=== PATIENT | female | born 1955 | race Caucasian/White ===

== ENCOUNTER 2017-08-13 13:51 | Emergency (ER) | payer OTHER ==
[~2017-08-13 13:51] MED LIST: ATOR40TA71 PO; FISH1CAP63 PO; METO-408 PO; MULT-1192 PO
[2017-08-13] MEDS ORDERED: FENTANYL CITRATE PF 50 MCG/1 ML 2ML VIAL ONE (14:09)
[2017-08-13] MEDS ORDERED: ONDANSETRON HCL 4 MG/2 ML VIAL ONE (14:09)
[2017-08-13] MEDS ORDERED: PROPOFOL 10 MG/ML 20ML VIAL IV ONE (15:10)
[2017-08-13] MEDS ORDERED: HYDROCODONE/ACETAMINOPHEN 10/325 MG TAB ONE (15:49)
== END 2017-08-13 16:26 | disposition home or self-care (01) ==
LOC: EDH 13:51
DX: S52.592A Other fractures of lower end of left radius, initial encounter for closed fracture (principal); S52.692A Other fracture of lower end of left ulna, initial encounter for closed fracture; Z87.891 Personal history of nicotine dependence; Z90.710 Acquired absence of both cervix and uterus; W01.0XXA Fall on same level from slipping, tripping and stumbling without subsequent striking against object, initial encounter; Y93.89 Activity, other specified; Y92.098 Other place in other non-institutional residence as the place of occurrence of the external cause; Y99.8 Other external cause status
CPT/HCPCS: 25605; 73080; 73100; 73110; 96374; 96375; 99152; 99153; 99285; J2405; J2704; J3010